=== PATIENT | male | born 1975 | race Caucasian/White ===

== ENCOUNTER 2020-05-05 02:22 | Observation (INO) ==
[2020-05-05] MEDS ORDERED: DEXAMETHASONE SODIUM PHOSP/PF 10 MG/ML VIAL IV ONE (03:08)
[2020-05-05] MEDS ORDERED: BENZONATATE 100 MG CAPSULE PO ONE (03:08)
[2020-05-05] MEDS ORDERED: ACETAMINOPHEN 1,000 MG/100 ML BTL IV ONE (03:08)
[2020-05-05] MEDS ORDERED: NORMAL SALINE 1,000 ML IV ONE ×2 (03:09→04:44)
[2020-05-05 04:00] LABS: Hematocrit 46.9 % (42.0-52.0); Mean Cell Volume 81.1 fl (78-100); Mean Corpuscular Hemoglobin 27.7 pg (27-31); Mean Corpuscular Hgb Conc 34.1 g/dl (32-36); Mean Platelet Volume 8.4 fl (8-11.3); Neutrophil # 6.8 K/mm3 (1.3-6.0); Neutrophil % 76.7 % (42-75.0); Platelet Count 255 K/mm3 (150-450); Red Blood Count 5.78 M/mm3 (4.7-6.0); Red Cell Distribution Width 12.1 % (11.5-14.0); White Blood Count 8.9 K/mm3 (4.0-10.5)
[2020-05-05 04:14] LABS: Albumin * 3.9 gm/dl (3.4-5.0); Anion Gap 15.7 mmol/L (6.8-13.8); Bilirubin, Total 1.3 mg/dL (0.0-1.1); Calcium * 9.2 mg/dL (7.9-10.9); Carbon Dioxide 26.1 mmol/L (24-32.6); Potassium 2.8 mmol/L (3.4-4.6); Total Protein 7.7 gm/dL (6.2-8.2)
[2020-05-05] MEDS ORDERED: POTASSIUM CHLORIDE 20 MEQ TABLET.SA PO ONE (04:35)
--- NOTE | 2020-05-05 05:47 | ERNOTE ---
Dyspnea - General Time Seen by Provider: 05/05/20 02:50 - Immun/Allergies/Home Medications Immunizations: IMMUNIZATION HX Immunizations Up to Date Yes History of Influenza Vaccine Yes Hx Pneumococcal Vaccination No Allergies/Adverse Reactions: Allergies amoxicillin [Amoxicillin] Allergy (Intermediate, Verified 05/05/20 02:41) hydrocodone bitartrate [From Vicodin] Allergy (Unknown, Verified 05/05/20 02:41) sulfamethoxazole [From Bactrim DS] Adverse Reaction (Intermediate, Verified 05/05/20 02:41) trimethoprim [From Bactrim DS] Adverse Reaction (Intermediate, Verified 05/05/20 02:41) Home Medications: HOME MEDICATIONS hydrochlorothiazide 25 mg tablet 25 mg PO DAILY #90 tab 10/25/19 [Last Taken Unknown] losartan 50 mg-hydrochlorothiazide 12.5 mg tablet 1 tab PO DAILY #90 tab 10/25/19 [Last Taken Unknown] potassium chloride 20 mEq tablet,extended release 20 meq PO DAILY #90 tab [Last Taken Unknown] azithromycin 250 mg tablet See Rx Instructions PO .COMPLEX #6 tab 05/01/20 [Last Taken Unknown] prednisone 20 mg tablet 40 mg PO DAILY #14 tab 05/01/20 [Last Taken Unknown] - History of Present Illness Narrative: 44-year-old male tested positive for Covid approximately 1 week ago is coming in because he is stating he is having episodes where he feels like he is going to pass out laryngospasms and at home says he desaturated. 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 Review of Systems - Review of Systems Constitutional: Present: See HPI EYE: Present: no symptoms reported ENT: Present: no symptoms reported, nose congestion Respiratory: Present: See HPI, cough Cardiology: Present: no symptoms reported Gastrointestinal/Abdominal: Present: no symptoms reported Musculoskeletal: Present: muscle pain Skin: Present: no symptoms reported Neurological: Present: no symptoms reported Endocrine: Present: no symptoms reported Hematologic/Lymphatic: Present: no symptoms reported Psych: Present: no symptoms reported All Other Systems: All systems neg except as marked Medical History (Last Reviewed 05/05/20 @ 05:43 by Ronald Figueroa MD) Hypertension (Chronic) Onset Date: ~08/28/13 Hyperlipidemia (Chronic) Onset Date: ~08/28/13 COVID-19 Painful orthopaedic hardware Onset Date: Unknown Pilonidal cyst Onset Date: Unknown MRSA (methicillin resistant Staphylococcus aureus) infection Onset Date: Unknown Surgical History: Surgical History (Last Reviewed 05/05/20 @ 05:43 by Ronald Figueroa MD) History of adenoidectomy Onset Date: Unknown History of removal of retained hardware Onset Date: ~10/06/12 History of shoulder surgery Onset Date: 06/03/12 Right AC construction. History of tonsillectomy Onset Date: Unknown Family History: Family History (Last Reviewed 05/05/20 @ 05:43 by Ronald Figueroa MD) Grandfather Diabetes Parkinsons Cancer Hypertension Myocardial infarction Social History: (Last Reviewed 05/05/20 @ 05:43 by Ronald Figueroa MD) Social History: Marital status: household members: spouse Service: No Tobacco: Smoking Status: Never smoker Alcohol: alcohol intake: current details: occasionally Substance Use: substance use type: does not use Dietary Habits: caffeine: Yes Physical Exam - Physical Exam General Appearance: Present: alert, mild distress Head Exam: Present: normal inspection, no evidence of injury Eye Exam: Normal inspection: bilateral Ears, Nose, Throat: Present: dry mucous membranes Neck: Present: normal inspection, nontender, supple, full range of motion Respiratory: Present: normal breath sounds, chest nontender, lungs clear, accessory muscle use Cardiovascular/Chest: Present: regular rate, rhythm, normal peripheral pulses Gastrointestinal/Abdominal: Present: nondistended, soft Back Exam: Present: normal range of motion Extremity Exam: Present: normal inspection Neurological Exam: Present: alert, oriented Skin Exam: Present: normal color Progress - Date and Time Seen: Date and Time: 05/05/20 05:44 Approximately 1 hour ago patient had an episode of near syncope and it was noted that his blood pressure dropped into the 80s. He was bolused fluid which improved his blood pressure. EKG was done which showed a right bundle branch block otherwise normal sinus rhythm with nonspecific changes review of labs indicated that his potassium was low at 2.8 his creatinine was mildly elevated at 1.7 however his troponin and lactic acid were negative. The admitting doctor Dr. Morales flowers salesperson was contacted to place patient on observation for potassium replenishment, IV hydration and monitoring. - Results and Orders Patient's Lab Results:: I have reviewed the patient's lab results. - Vital Signs Patient's Vital Signs:: I have reviewed the patient's vital signs. Vital Signs: Vital Signs 05/05/20 02:22 05/05/20 02:55 05/05/20 03:15 Temperature 39.7 C H Pulse Rate 116 H 99 104 H Respiratory Rate 24 H 24 H 24 H Blood Pressure 109/71 111/74 112/76 O2 Sat by Pulse Oximetry 95 91 L 93 05/05/20 03:46 05/05/20 03:55 05/05/20 04:03 Temperature 38.0 C Pulse Rate 94 93 96 Respiratory Rate 24 H 20 20 Blood Pressure 107/71 114/73 114/73 O2 Sat by Pulse Oximetry 94 93 92 L 05/05/20 04:12 05/05/20 04:15 05/05/20 04:24 Temperature 38.6 C H Pulse Rate 93 93 93 Respiratory Rate 20 20 20 Blood Pressure 88/50 L 87/47 L 96/61 O2 Sat by Pulse Oximetry 92 L 91 L 94 05/05/20 04:35 05/05/20 04:53 05/05/20 04:55 Temperature Pulse Rate 92 93 96 Respiratory Rate 20 20 24 H Blood Pressure 98/66 114/77 101/66 O2 Sat by Pulse Oximetry 91 L 95 95 05/05/20 05:05 05/05/20 05:37 Temperature Pulse Rate 94 85 Respiratory Rate 20 20 Blood Pressure 106/75 118/70 O2 Sat by Pulse Oximetry 96 93 - Progress/Reassessment Chief Complaint: Dyspnea Plan - Plan Plan: Patient be placed on observation for continued care reevaluation of his potassium Departure Clinical Impression: Hypokalemia, COVID-19 - Departure Disposition: Short Term Hospital Inpatient Condition: Fair Referrals: Gareth Torres DO [Primary Care Provider] -
[2020-05-05] MEDS: POTASSIUM CHLORIDE IN WATER 100 ML IV SCH ×4 (06:31→09:36)
[2020-05-05 08:26] LABS: Albumin * 3.4 gm/dl (3.4-5.0); BUN/Creatinine Ratio 18.2 (9.0-21.6); Bilirubin, Total 1.1 mg/dL (0.0-1.1); Ca. Corrected For Albumin 8.3 mg/dL (8.4-10.2); Calcium * 8.1 mg/dL (7.9-10.9); Carbon Dioxide 24.6 mmol/L (24-32.6); Potassium 3.6 mmol/L (3.4-4.6)
[2020-05-05] MEDS ORDERED: POTASSIUM CHLORIDE 20 MEQ in DEXTROSE 5%-0.5 NORMAL SALINE 990 ML IV SCH (08:45)
[2020-05-05] MEDS ORDERED: POTASSIUM CHLORIDE 20 MEQ TABLET.SA PO SCH (09:00)
[2020-05-05] MEDS ORDERED: AZITHROMYCIN 250 MG TABLET PO SCH (09:00)
[2020-05-05] MEDS ORDERED: HYDROCHLOROTHIAZIDE 12.5 MG CAPSULE PO SCH (09:00)
[2020-05-05] MEDS ORDERED: LOSARTAN POTASSIUM 50 MG TABLET PO SCH (09:00)
[2020-05-05] MEDS ORDERED: predniSONE 20 MG TABLET PO SCH (09:00)
[2020-05-05] MEDS ORDERED: [UNRECOGNIZED DRUG - OTHER] PO SCH (09:00)
[2020-05-05] MEDS ORDERED: POTASSIUM CHLORIDE 20 MEQ/15 ML UDC PO SCH (09:00)
[2020-05-05] MEDS ORDERED: HYDROCHLOROTHIAZIDE 25 MG TABLET PO SCH (09:00)
[2020-05-05] MEDS ORDERED: LOSARTAN PO SCH (09:00)
[2020-05-05] MEDS ORDERED: HYDROCHLOROTHIAZIDE PO SCH (09:00)
--- NOTE | 2020-05-05 13:57 | HPDIS ---
Chief Complaint - Chief Complaint Date of Service: 05/05/20 Time of Service: 13:29 Chief Complaint: Fever, weakness History of Present Illness: Duke is a 44 yo male who was diagnosed with COVID19 about a week ago. He has had cough, shortness of breath, and decreased oral intake. In the last 48 hours he has had more weakness, body aches, and fatigue. He presented to the [facility] ER and was found to have a potassium of 2.8. Chest xray showed pneumonia. He had elevated creatinine at 1.7. He was given IV fluids and IV potassium in the ER. Medical History (Last Reviewed 05/05/20 @ 05:43 by Ronald Figueroa MD) Hypertension (Chronic) Onset Date: ~08/28/13 Hyperlipidemia (Chronic) Onset Date: ~08/28/13 COVID-19 Painful orthopaedic hardware Onset Date: Unknown Pilonidal cyst Onset Date: Unknown MRSA (methicillin resistant Staphylococcus aureus) infection Onset Date: Unknown Surgical History: Surgical History (Last Reviewed 05/05/20 @ 05:43 by Ronald Figueroa MD) History of adenoidectomy Onset Date: Unknown History of removal of retained hardware Onset Date: ~10/06/12 History of shoulder surgery Onset Date: 06/03/12 Right AC construction. History of tonsillectomy Onset Date: Unknown Family History: Family History (Last Reviewed 05/05/20 @ 05:43 by Ronald Figueroa MD) Grandfather Diabetes Parkinsons Cancer Hypertension Myocardial infarction Social History: (Last Reviewed 05/05/20 @ 05:43 by Ronald Figueroa MD) Social History: Marital status: household members: spouse Service: No Tobacco: Smoking Status: Never smoker Alcohol: alcohol intake: current details: occasionally Substance Use: substance use type: does not use Dietary Habits: caffeine: Yes Review Of Systems (GEN) - Review of Systems Generalized/Overall Review: Present: Weakness, Fever, Fatigue EENTM: Present: No Symptoms Reported Respiratory: Present: Cough, Shortness of Breath Cardiac: Absent: Chest Pain, Edema Abdominal: Absent: Nausea, Vomiting Genitourinary: Absent: Burning, Frequency Skin: Present: No Symptoms Reported Immunizations: IMMUNIZATION HX Immunizations Up to Date Yes History of Influenza Vaccine Yes Hx Pneumococcal Vaccination No Allergies/Adverse Reactions: Allergies Allergy/AdvReac Type Severity Reaction Status Date / Time amoxicillin [Amoxicillin] Allergy Intermediate Verified 05/05/20 02:41 hydrocodone bitartrate Allergy Unknown Verified 05/05/20 02:41 [From Vicodin] sulfamethoxazole AdvReac Intermediate Verified 05/05/20 02:41 [From Bactrim DS] trimethoprim AdvReac Intermediate Verified 05/05/20 02:41 [From Bactrim DS] Home Medications: HOME MEDICATIONS hydrochlorothiazide 25 mg tablet 25 mg PO DAILY #90 tab 10/25/19 [Last Taken Unknown] losartan 50 mg-hydrochlorothiazide 12.5 mg tablet 1 tab PO DAILY #90 tab 10/25/19 [Last Taken Unknown] potassium chloride 20 mEq tablet,extended release 20 meq PO DAILY #90 tab 10/25/19 [Last Taken Unknown] azithromycin 250 mg tablet See Rx Instructions PO .COMPLEX #6 tab 05/01/20 [Last Taken Unknown] prednisone 20 mg tablet 40 mg PO DAILY #14 tab 05/01/20 [Last Taken Unknown] Benzonatate 200 mg PO TID PRN #40 cap 05/05/20 [Last Taken Unknown] Exam - Exam Vital Signs: Vital Signs - Last Taken Temp 37.2 C 05/05/20 09:42 Pulse 82 05/05/20 09:42 Resp 16 05/05/20 09:42 BP 140/90 H 05/05/20 09:42 Pulse Ox 95 05/05/20 09:42 Constitutional: Present: Alert, Oriented x3, No distress ENT Exam: Present: hearing grossly normal Eye Exam: bilateral eye: normal inspection Respiratory: Present: lungs clear, normal breath sounds, no respiratory distress Cardiovascular/Chest: Present: regular rate, rhythm, no edema, no murmur Peripheral Pulses: radial (R): 2+, radial (L): 2+ Abdomen: Present: Normal bowel sounds, soft, nontender Skin Exam: Present: normal color Neurologic: Present: alert, normal mood/affect, oriented x 3 Appearance: Present: appropriate appearance, appropriate insight Eye contact: Present: cooperative, good eye contact Diagnostic Studies: Abnormal Lab Results 05/05/20 05/05/20 05/05/20 Range/Units 03:52 03:52 08:00 Neutrophils % 76.7 H (42-75.0) % Lymphocytes % 13.8 L (20-51) % Monocytes % 9.1 H (0.0-9) % Neutrophils # 6.8 H (1.3-6.0) K/mm3 Lymphocytes # 1.23 L (1.5-3.5) k/mm3 Potassium 2.8 L D (3.4-4.6) mmol/L Anion Gap 15.7 H 16.0 H (6.8-13.8) mmol/L BUN 26 H D 24 H (6-23) mg/dL Creatinine 1.73 H D (0.4-1.4) mg/dL Est GFR (Non-Af Amer) 46 L D (60-130) mL/min Random Glucose 118 H 156 H D (70-110) mg/dL Calcium Adj for Albumin 8.3 L (8.4-10.2) mg/dL Total Bilirubin 1.3 H (0.0-1.1) mg/dL Laboratory Results WBC 8.9 K/mm3 (4.0-10.5) 05/05/20 03:52 RBC 5.78 M/mm3 (4.7-6.0) 05/05/20 03:52 Hgb 16.0 gm/dL (13.5-18.0) 05/05/20 03:52 Hct 46.9 % (42.0-52.0) 05/05/20 03:52 MCV 81.1 fl (78-100) 05/05/20 03:52 MCH 27.7 pg (27-31) 05/05/20 03:52 MCHC 34.1 g/dl (32-36) 05/05/20 03:52 RDW 12.1 % (11.5-14.0) 05/05/20 03:52 Plt Count 255 K/mm3 (150-450) 05/05/20 03:52 MPV 8.4 fl (8-11.3) 05/05/20 03:52 Immature Gran % (Auto) 0.30 % (0.001-0.429) 05/05/20 03:52 Immature Gran # (Auto) 0.03 K/mm3 (0.000-0.0310) 05/05/20 03:52 Neutrophils % 76.7 % (42-75.0) H 05/05/20 03:52 Lymphocytes % 13.8 % (20-51) L 05/05/20 03:52 Monocytes % 9.1 % (0.0-9) H 05/05/20 03:52 Eosinophils % 0.0 % (0.0-3.0) 05/05/20 03:52 Basophils % 0.1 % (0.0-1.0) 05/05/20 03:52 Nucleated RBC % 0.0 k/mm3 (0-1) 05/05/20 03:52 Neutrophils # 6.8 K/mm3 (1.3-6.0) H 05/05/20 03:52 Lymphocytes # 1.23 k/mm3 (1.5-3.5) L 05/05/20 03:52 Monocytes # 0.8 k/mm3 (0.0-1.0) 05/05/20 03:52 Eosinophils # 0.0 k/mm3 (0.0-0.7) 05/05/20 03:52 Absolute Basophils 0.0 k/mm3 (0.0-0.1) 05/05/20 03:52 Sodium 138 mmol/L (132-142) 05/05/20 08:00 Plasma Sodium 139 mmol/L (130-142) 05/05/20 08:00 Potassium 3.6 mmol/L (3.4-4.6) D 05/05/20 08:00 Chloride 101 mmol/L (97-106) 05/05/20 08:00 Carbon Dioxide 24.6 mmol/L (24-32.6) 05/05/20 08:00 Anion Gap 16.0 mmol/L (6.8-13.8) H 05/05/20 08:00 BUN 24 mg/dL (6-23) H 05/05/20 08:00 Creatinine 1.32 mg/dL (0.4-1.4) D 05/05/20 08:00 Est GFR (Non-Af Amer) 63 mL/min (60-130) D 05/05/20 08:00 BUN/Creatinine Ratio 18.2 (9.0-21.6) 05/05/20 08:00 Random Glucose 156 mg/dL (70-110) H D 05/05/20 08:00 Lactic Acid, Venous 1.3 mmol/L (0.4-2.0) 05/05/20 04:50 Calcium 8.1 mg/dL (7.9-10.9) 05/05/20 08:00 Calcium Adj for Albumin 8.3 mg/dL (8.4-10.2) L 05/05/20 08:00 Total Bilirubin 1.1 mg/dL (0.0-1.1) 05/05/20 08:00 AST 23 U/L (0-48) 05/05/20 08:00 ALT 39 U/L (19-67) 05/05/20 08:00 Alkaline Phosphatase 59 U/L (50-170) 05/05/20 08:00 Troponin I Less than 0.017 ng/mL (0.00-0.10) 05/05/20 04:50 Total Protein 7.0 gm/dL (6.2-8.2) 05/05/20 08:00 Albumin 3.4 gm/dl (3.4-5.0) 05/05/20 08:00 Assessment/Plan - Narrative Narrative: Duke will be admitted to observation for hypokalemia of 2.8. Potassium replaced in the ER. Recheck of potassium was 3.5 [address] the floor and creatinine is improved to normal from 1.73 to 1.3. Will continue IV fluids with potassium and monitor today. Will plan to discharge this afternoon if he is feeling better. Covid 19 does not appear to be causing any respiratory distress or hypoxia. - Assessment/Plan (1) Hypokalemia Problem: Acute (2) Acute renal failure Problem: Acute (3) COVID-19 Problem: Acute (1) Hypokalemia Problem: Acute (2) Acute renal failure Problem: Acute (3) COVID-19 Problem: Acute Date of Discharge:: 05/05/20 Hospital Course: Duke was admitted for hypokalemia and acute renal failure secondary to poor oral intake from COVID-19. Fluids and potassium were replaced in the ER and recheck showed that these have normalized. Fluids were continued and he is feeling better and ready for home discharge. Procedures Performed: none Results and Findings: Lab Pending Results 05/05/20 03:52: WBC 8.9, RBC 5.78, Hgb 16.0, Hct 46.9, MCV 81.1, MCH 27.7, MCHC 34.1, RDW 12.1, Plt Count 255, MPV 8.4, Immature Gran % (Auto) 0.30, Immature Gran # (Auto) 0.03, Neutrophils % 76.7 H, Lymphocytes % 13.8 L, Monocytes % 9.1 H, Eosinophils % 0.0, Basophils % 0.1, Nucleated RBC % 0.0, Neutrophils # 6.8 H, Lymphocytes # 1.23 L, Monocytes # 0.8, Eosinophils # 0.0, Absolute Basophils 0.0 05/05/20 03:52: Sodium 137, Plasma Sodium 137, Potassium 2.8 L D, Chloride 98, Carbon Dioxide 26.1, Anion Gap 15.7 H, BUN 26 H D, Creatinine 1.73 H D, Est GFR (Non-Af Amer) 46 L D, BUN/Creatinine Ratio 15.0, Random Glucose 118 H, Calcium 9.2, Calcium Adj for Albumin 9.0, Total Bilirubin 1.3 H, AST 24, ALT 46, Alkaline Phosphatase 59, Total Protein 7.7, Albumin 3.9 05/05/20 03:52: Troponin I Less than 0.017 05/05/20 03:52: Lactic Acid, Venous 1.5 05/05/20 04:50: Troponin I Less than 0.017 05/05/20 04:50: Lactic Acid, Venous 1.3 05/05/20 08:00: Sodium 138, Plasma Sodium 139, Potassium 3.6 D, Chloride 101, Carbon Dioxide 24.6, Anion Gap 16.0 H, BUN 24 H, Creatinine 1.32 D, Est GFR (Non-Af Amer) 63 D, BUN/Creatinine Ratio 18.2, Random Glucose 156 H D, Calcium 8.1, Calcium Adj for Albumin 8.3 L, Total Bilirubin 1.1, AST 23, ALT 39, Alkaline Phosphatase 59, Total Protein 7.0, Albumin 3.4 Discharge Location: Home Disposition: Home self-care Condition: Good Discharge Activity: Activity as tolerated Discharge Diet: General/regular food Referrals: Gareth Torres DO [Primary Care Provider] - One Week Problem Oriented Discharge Instructions to Patient/Family: Hypokalemia Prescriptions (Any new or edited meds): Benzonatate 200 mg PO TID PRN #40 cap PRN Reason: cough Transmission Status: Pending to [id number] Complete Home Medications List: Complete Home Medication List: hydrochlorothiazide 25 mg tablet 25 mg PO DAILY #90 tab 10/25/19 losartan 50 mg-hydrochlorothiazide 12.5 mg tablet 1 tab PO DAILY #90 tab 10/25/19 potassium chloride 20 mEq tablet,extended release 20 meq PO DAILY #90 tab 10/25/19 azithromycin 250 mg tablet See Rx Instructions PO .COMPLEX #6 tab 05/01/20 prednisone 20 mg tablet 40 mg PO DAILY #14 tab 05/01/20 Benzonatate 200 mg PO TID PRN #40 cap 05/05/20
[2020-05-05 14:30] VITALS: BP 139/84
== END 2020-05-05 14:44 | disposition home or self-care (01) ==
LOC: ER 02:22 → MS 02:22
PROVIDERS: ADMIT Family Medicine; ATTEND Family Medicine